=== PATIENT | female | born 1965 | race Caucasian/White ===

== ENCOUNTER → 2022-11-28 | Outpatient (CLI) | payer MEDICAID ==
[~2022-11-28] MED LIST: ALBUTEROL0.09 MG/A2 INH; ALBUTEROL2.5 MG/0.5 INH; AMOXICILLIN500 MG PO; BREO ELLIPTA 11 EACH INH; CATAFLAM50 MG PO; CLARITIN10 MG PO; HYDROCODONE BIT1 T11 PO; MOTRIN800 MG PO; NKHM; OMEPRAZOLE MAGN20 M1 PO; PROAIR HFA8.5 GM INH; PROZAC20 MG PO; ULTRAM50 MG PO; VENTOLIN H0.09 MG/AC INH; VICODIN 5/500 505 MG PO; VICODIN 500 MG-1 TAB PO; VITAMIN C500 M6 PO; ZESTRIL10 MG PO; ZITHROMAX Z PA250 MG PO
== END | disposition home or self-care (01) ==
LOC: MAMMO 13:13
PROVIDERS: ATTEND Internal Medicine
DX: Z12.31 Encounter for screening mammogram for malignant neoplasm of breast (principal)

== ENCOUNTER → 2022-12-27 | Outpatient (CLI) | payer MEDICAID ==
[2022-12-27 15:00] LABS: BUN 11 mg/dl (9-23); CHLORIDE 99 mmol/L (98-107)
== END | disposition home or self-care (01) ==
LOC: LAB 13:55
PROVIDERS: ATTEND Internal Medicine
DX: J02.9 Acute pharyngitis, unspecified (principal)

== ENCOUNTER → 2023-12-05 | Outpatient (CLI) | payer MEDICAID | END | disposition home or self-care (01) | LOC: US 13:00 | PROVIDERS: ATTEND Internal Medicine | DX: I65.23 Occlusion and stenosis of bilateral carotid arteries (principal); I63.9 Cerebral infarction, unspecified ==

== ENCOUNTER → 2023-12-28 | Outpatient (CLI) | payer MEDICAID | END | disposition home or self-care (01) | LOC: MAMMO 10:30 | PROVIDERS: ATTEND Internal Medicine | DX: Z12.31 Encounter for screening mammogram for malignant neoplasm of breast (principal) ==

== ENCOUNTER 2024-02-02 12:23 | Inpatient (IN) | payer MEDICAID ==
[~2024-02-02] VITALS: Wt 74.4 kg
[2024-02-02 12:29] VITALS: BP 123/65
[2024-02-02] MEDS ORDERED: Albuterol Sulfate 2.5 MG/3 ML VIAL NEB ONE (12:30)
[2024-02-02] MEDS ORDERED: methylPREDNISolone sod succ 125 MG VIAL IV ONE (12:30)
[2024-02-02] MEDS ORDERED: MAGNESIUM SULFATE 50 ML IV ONE (12:30)
[2024-02-02 13:10] LABS: BUN 19 mg/dl (9-23); CHLORIDE 103 mmol/L (98-107); POTASSIUM 3.5 mmol/L (3.4-5.1)
[2024-02-02] MEDS ORDERED: HYDROCHLOROTHIA25 M1 PO (13:25)
[2024-02-02] MEDS ORDERED: TERBINAFINE250 MG PO (13:25)
[2024-02-02] MEDS ORDERED: MONTELUKAST SOD10 MG PO (13:26)
[2024-02-02] MEDS ORDERED: PANTOPRAZOLE SO40 MG PO (13:26)
[2024-02-02] MEDS ORDERED: PRISTIQ50 MG PO (13:26)
[2024-02-02] MEDS ORDERED: PREGABALIN75 MG PO (13:27)
[2024-02-02] MEDS ORDERED: LORAZEPAM0.5 M1 PO (13:27)
[2024-02-02] MEDS ORDERED: ATORVASTATIN CA40 M1 PO (13:27)
[2024-02-02] MEDS ORDERED: IBU800 M1 PO (13:28)
[2024-02-02] MEDS ORDERED: DOCUSATE SOD100 MG PO (13:29)
[2024-02-02] MEDS ORDERED: DERMACINRX LID1 EACH T (13:30)
[2024-02-02] MEDS ORDERED: ASPIRIN ADULT L81 M1 PO (13:31)
[2024-02-02] MEDS ORDERED: CALCIUM CARBON600 M5 PO (13:31)
[2024-02-02 16:38] LABS: HEMATOCRIT 38.5 % (37.0-47.0); MEAN CELL VOLUME 91.2 fl (81.0-99.0); MEAN CORPUSCULAR HGB 30.3 pg (27.0-31.0); MEAN CORPUSCULAR HGB CONC 33.2 g/dl (33.0-37.0); MEAN PLATELET VOLUME 11.3 fl (9.6-12.3); PLATELET COUNT AUTOMATED 191 10*3/uL (130-400); RED BLOOD COUNT 4.22 10*6/uL (4.10-5.10); RED CELL DISTRI WIDTH 13.2 % (0-14.5)
[2024-02-02 16:49] LABS: MANUAL DIFF REFLEX YES
[2024-02-02 17:16] LABS: BURR CELLS FEW; PLATELET SUFFICIENCY NORMAL (NORMAL); TOTAL CELLS COUNTED 100 #CELLS
[2024-02-02] MEDS ORDERED: Albuterol Sulf/Ipratropium 3 ML VIAL NEB SCH (18:00)
[2024-02-02] MEDS ORDERED: Albuterol Sulfate 2.5 MG/0.5 ML VIAL NEB PRN (18:05)
[2024-02-02] MEDS ORDERED: DOCUSATE SODIUM 100 MG CAP PO PRN (18:05)
[2024-02-02] MEDS ORDERED: ALBUTEROL 8 GM INHALER INH PRN (18:05)
[2024-02-02] MEDS ORDERED: Albuterol Sulfate 2.5 MG/3 ML VIAL NEB PRN (18:25)
[2024-02-02 18:55] VITALS: BP 122/60
[2024-02-02] MEDS ORDERED: ATORVASTATIN CALCIUM 40 MG TABLET PO SCH (22:00)
[2024-02-02] MEDS ORDERED: PREGABALIN 75 MG CAP PO SCH (22:00)
[2024-02-03 00:41] VITALS: BP 133/71
[2024-02-03] MEDS ORDERED: Pantoprazole Sodium 40 MG TAB PO SCH (07:30)
[2024-02-03 08:10] VITALS: BP 121/57
[2024-02-03] MEDS ORDERED: HYDROCHLOROTHIAZIDE 25 MG TAB PO SCH (10:00)
[2024-02-03] MEDS ORDERED: LISINOPRIL 10 MG TAB PO SCH (10:00)
[2024-02-03] MEDS ORDERED: Desvenlafaxine Succinate 50 MG TER PO SCH (10:00)
[2024-02-03] MEDS ORDERED: LORazepam 0.5 MG TAB PO SCH (10:00)
[2024-02-03] MEDS ORDERED: [UNRECOGNIZED DRUG - OTHER] PO SCH (10:00)
[2024-02-03] MEDS ORDERED: ASPIRIN, CHEWABLE 81 MG TAB PO SCH (10:00)
[2024-02-03] MEDS ORDERED: IBUPROFEN 800 MG TAB PO SCH (10:00)
[2024-02-03] MEDS ORDERED: Montelukast Sodium 10 MG TAB PO SCH (10:00)
== END 2024-02-03 13:36 | disposition home or self-care (01) | DRG 143 ==
LOC: ED 12:23 → EDHOLD 16:01
PROVIDERS: Emergency Medicine; ADMIT Internal Medicine; ATTEND Internal Medicine
DX: T17.598A Other foreign object in bronchus causing other injury, initial encounter (principal); K21.9 Gastro-esophageal reflux disease without esophagitis; F32.A Depression, unspecified; F41.9 Anxiety disorder, unspecified; E78.00 Pure hypercholesterolemia, unspecified; I50.32 Chronic diastolic (congestive) heart failure; F17.200 Nicotine dependence, unspecified, uncomplicated; J44.89 Other specified chronic obstructive pulmonary disease; I11.0 Hypertensive heart disease with heart failure; Y93.89 Activity, other specified; Y92.89 Other specified places as the place of occurrence of the external cause; Y99.8 Other external cause status; Z88.1 Allergy status to other antibiotic agents; Z88.6 Allergy status to analgesic agent; Z79.51 Long term (current) use of inhaled steroids; Z79.82 Long term (current) use of aspirin; Z79.899 Other long term (current) drug therapy; Z98.891 History of uterine scar from previous surgery; Z82.49 Family history of ischemic heart disease and other diseases of the circulatory system

== ENCOUNTER → 2024-02-07 | Day surgery (SDC) | payer MEDICAID ==
[~2024-02-07] VITALS: Ht 152.4 cm; Wt 68.0 kg
[~2024-02-07] MED LIST changes: +ASPIRIN ADULT L81 M1 PO; +ATORVASTATIN CA40 M1 PO; +Albuterol Sulf/Ipratropium 3 ML VIAL NEB ONE; +Albuterol Sulfate 2.5 MG/0.5 ML VIAL NEB ONE; +CALCIUM CARBON600 M5 PO; +DERMACINRX LID1 EACH T; +DOCUSATE SOD100 MG PO; +HYDROCHLOROTHIA25 M1 PO; +IBU800 M1 PO; +LORAZEPAM0.5 M1 PO; +Lactated Ringer's Solution 500 ML IV ONE; +Lidocaine Hydrochloride 2% 5 ML SDV IM ONE; +Lidocaine Hydrochloride 4% 5 ML AMP NEB ONE; +Lidocaine Hydrochloride 4% 5 ML AMP ONE; +MONTELUKAST SOD10 MG PO; +PANTOPRAZOLE SO40 MG PO; +PREGABALIN75 MG PO; +PRISTIQ50 MG PO; +PROPOFOL 200 MG/20 ML VIAL IV ONE; +TERBINAFINE250 MG PO
[2024-02-07 08:31] VITALS: BP 107/62
[2024-02-07 09:36] VITALS: BP 108/53
[2024-02-07 09:51] VITALS: BP 108/52
[2024-02-07 10:09] VITALS: BP 107/53
[2024-02-08 12:09] LABS: ACID FAST SPEC PROCESSING Concentration (.)
== END | disposition home or self-care (01) ==
LOC: SDC 02-06 08:00
PROVIDERS: ATTEND Internal Medicine Critical Care Medicine
DX: R05.9 Cough, unspecified (principal); J45.909 Unspecified asthma, uncomplicated; I10 Essential (primary) hypertension; E78.00 Pure hypercholesterolemia, unspecified; F41.9 Anxiety disorder, unspecified; F32.A Depression, unspecified; Z98.891 History of uterine scar from previous surgery; Z98.890 Other specified postprocedural states; Z88.8 Allergy status to other drugs, medicaments and biological substances; Z79.82 Long term (current) use of aspirin; Z79.899 Other long term (current) drug therapy; Z82.49 Family history of ischemic heart disease and other diseases of the circulatory system

== ENCOUNTER → 2025-01-15 | Outpatient (CLI) | payer MEDICAID ==
[~2025-01-15] MED LIST changes: -Albuterol Sulf/Ipratropium 3 ML VIAL NEB ONE; -Albuterol Sulfate 2.5 MG/0.5 ML VIAL NEB ONE; -Lactated Ringer's Solution 500 ML IV ONE; -Lidocaine Hydrochloride 2% 5 ML SDV IM ONE; -Lidocaine Hydrochloride 4% 5 ML AMP NEB ONE; -Lidocaine Hydrochloride 4% 5 ML AMP ONE; -PROPOFOL 200 MG/20 ML VIAL IV ONE
== END | disposition home or self-care (01) ==
LOC: MAMMO 01-07 15:30
PROVIDERS: ATTEND Internal Medicine
DX: Z12.31 Encounter for screening mammogram for malignant neoplasm of breast (principal)